=== PATIENT | male | born 2000 | race Caucasian/White ===

== ENCOUNTER 2021-12-01 14:49 | Emergency (ER) | payer BC ==
[2021-12-01] MEDS ORDERED: Ondansetron 4 MG Tab.DIS PO ONE (15:30)
[2021-12-01] MEDS ORDERED: Meclizine 25 MG Tab PO ONE (15:30)
[2021-12-01] MEDS ORDERED: Ibuprofen 800 MG Tab PO STA (15:45)
[2021-12-01 16:24] LABS: CORONAVIRUS COVID-19 NAA NEGATIVE (NEGATIVE)
== END 2021-12-01 17:02 | disposition home or self-care (01) ==
LOC: FB.ED 14:49
DX: H81.10 Benign paroxysmal vertigo, unspecified ear (principal); Z20.822 Contact with and (suspected) exposure to COVID-19
CPT/HCPCS: 0240U; 36415; 80048; 85025; 99283; 99284; A9270-GY; Q0162